=== PATIENT | female | born 1945 | race Caucasian/White ===

== ENCOUNTER → 2017-02-25 | Outpatient (CLI) | payer MEDICARE ==
[~2017-02-25] MED LIST: AMLO5TAB22 PO; BALANCED SALT SOLN OPHT IRRIG 15 ML BTL ONE; HYPROMELLOSE 0.3 % OPTH GEL 10 GM (0.34 FL OZ) TUBE ONE; LEVO88TA21 PO; LISI-366 PO; LORTA5 PO; PILOCARPINE HCL 2% OPHT SOLN 15 ML BTL ONE; PROPARACAINE HCL 0.5% OPHT SOLN 15 ML BTL ONE; RANI150 PO; ROSU40 PO; ZOFR4TAB3 SL; prednisoLONE ACETATE 1% OPHT SUSP 5 ML BTL ONE
--- NOTE | 2017-02-25 14:13 | MP ---
cc: JEN WHYTE DATE OF SURGERY: 02/25/2017 PREOPERATIVE DIAGNOSIS Narrow anterior chamber angle, right eye. POSTOPERATIVE DIAGNOSIS Narrow anterior chamber angle, right eye. OPERATION Laser peripheral iridectomy, right eye. ANESTHESIA Topical. COMPLICATIONS None. INDICATIONS FOR PROCEDURE See History and Physical previously dictated. PROCEDURE The patient arrived at [facility]. Blood pressure was 108/57, pulse 55, respirations 16. A drop of Alphagan P and 2% Pilocarpine were instilled in the right eye. A drop of Ophthaine was instilled in the right eye and a laser iridectomy lens was placed on the anterior surface of the right cornea. Peripheral iridectomy was carried out utilizing the following procedure: Argon laser was first utilized forming a crater in the iris. 30 exposures of 400 milliwatts of power were used with a spot size of 200 microns for 0.2 seconds. Then the second phase we have Argon laser number of exposures was 14, 950 milliwatts of power, 0.1 seconds exposure time and 50 micron spot size. Following this, YAG laser was utilized to complete the iridectomy. Two exposures, one of the exposures was 4.7 millijoules and one of them was 3 millijoules were utilized by the YAG laser to complete the iridectomy. An adequate opening was seen at this time. The iridectomy lens was removed and the eye was irrigated. A drop of Alphagan P was instilled. The patient was given a prescription for Pred Forte to be utilized four times a day, and has an appointment for follow-up on the first postoperative day in my office. The patient left the [facility] in satisfactory condition. MD KUN Stoddard/JOSE /1:07 PM /1:45 PM
--- NOTE | 2017-02-26 14:19 | MH ---
cc: JEN WHYTE DATE OF ADMISSION 02/25/2017 ADMISSION DIAGNOSIS Narrow anterior chamber angle right eye. HISTORY OF PRESENT ILLNESS This 71-year-old white female is coming through [facility] for the purpose of a laser peripheral iridectomy of the right eye. She was found to have narrow anterior chamber angles with potential angle closure on gonioscopy and has elected to have laser peripheral iridectomy of the right eye at this time. PAST MEDICAL HISTORY The patient has a history of: 1. Hypertension 2. Stage III kidney disease and past kidney infection in May. 3. Cholesterol problems 4. Hypothyroid problems 5. Acid reflux 6. Psoriasis PAST SURGICAL HISTORY Includes: 1. Hysterectomy 2. Gallbladder surgery 3. Left renal cell nephrectomy in 1991 4. Lithotripsy of the right kidney with a large stone in 1991. 5. Hernia of the stomach in 1994. MEDICATIONS Daily medications include: 1. Levothyroxine 2. Lisinopril 3. Carvedilol 4. Potassium chloride 5. Omeprazole 6. Vitamin D3 7. Vitamin B12 8. Fluocinolone 9. Acetonide for psoriasis 10. Premarin cream ALLERGIES SHE IS ALLERGIC TO PENICILLIN AND DOES NOT TAKE NSAIDS due to kidney disease. SOCIAL HISTORY Noncontributory FAMILY HISTORY Positive for cataracts in her parents. REVIEW OF SYSTEMS Noncontributory OCULAR EXAM On ocular exam the patient's best corrected visual acuity is 20/20 in each eye. Visual pitt are full to confrontation testing. Extraocular muscle exam reveals full versions with orthophoria at distance and exophoria at near. Pupils are 2.5 mm equal, round, reactive to light without afferent defect. Anterior segment examination reveals narrow anterior chamber angles with potential angle closure on gonioscopy in each eye. Intraocular pressure is 17 in the right eye and 18 in the left by applanation tonometry. Dilated fundus exam revealed sharp disk with cup-to-disk ratio 0.35 bilaterally. The macula is clear in both eyes. 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 There is a choroidal nevus inferiorly in the right eye which is one disk diameter in size. IMPRESSION 1. Narrow anterior chamber angles with potential angle closure. 2. 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 3. Choroidal nevus right eye. PLAN Laser peripheral iridectomy of the right eye through [facility]. MD KUN Stoddard/OBIE /7:46 AM /7:58 AM
== END ==
LOC: PHSDC 12:14
PROVIDERS: ATTEND Ophthalmology
DX: H40.031 Anatomical narrow angle, right eye (principal)

== ENCOUNTER → 2017-04-22 | Outpatient (CLI) | payer MEDICARE ==
--- NOTE | 2017-04-22 13:37 | MP ---
cc: Joseph Gamboa MD DATE OF OPERATION: 04/22/2017 PREOPERATIVE DIAGNOSIS: Narrow anterior chamber angle, left eye. POSTOPERATIVE DIAGNOSIS: Narrow anterior chamber angle, left eye. OPERATION: Laser peripheral iridectomy, left eye. ANESTHESIA: Topical. COMPLICATIONS: None. INDICATIONS FOR PROCEDURE: See History and Physical previously dictated. PROCEDURE: The [facility] at [facility]. Blood pressure was 129/71, pulse 52, respirations 16. A drop of Alphagan P and 2% Pilocarpine were instilled in the left eye. A drop of Ophthaine was instilled in the left eye and a laser iridectomy lens was placed on the anterior surface of the left cornea. Peripheral iridectomy was carried out utilizing the following procedure: Argon laser was first utilized forming a crater in the iris. 13 exposures of 400 milliwatts were used with a spot size of 200 microns for 0.2 seconds. Then 14 exposures of 950 milliwatts were used with the spot size of 50 microns for 0.1 seconds exposure time. Following this, YAG laser was utilized to complete the iridectomy. 3 exposures of 4 millijoules were utilized by the YAG laser to complete the iridectomy. An adequate opening was seen at this time. The iridectomy lens was removed and the eye was irrigated. A drop of Alphagan P was instilled. The patient was given a prescription for Pred Forte to be utilized four times a day, and has an appointment for follow-up on the first postoperative day in my office. The patient left the [facility] in satisfactory condition. MD KUN Stoddard/DL , 01:09 PM , 01:35 PM
== END ==
LOC: PHSDC 11:15
PROVIDERS: ATTEND Ophthalmology
DX: H40.032 Anatomical narrow angle, left eye (principal)